=== PATIENT | female | born 1990 | race Caucasian/White ===

== ENCOUNTER 2016-08-24 10:26 | Emergency (ER) | payer OTHER ==
[2016-08-24 10:36] VITALS: TEMP 98.3; O2SAT 99
[2016-08-24 11:56] VITALS: BP 115/75; PULSE 61; RESP 20
--- NOTE | 2016-08-24 11:57 | C.PDOC ---
History Of Present Illness 26 y/o female presents to the ED with complaints of headache x3 days. Pain is frontal radiating to back of head, throbbing, 6/10. Pt denies any trauma. She states that when she turns her head to the left, she feels pulling deep in her back. Denies fever, chills, nausea, vomiting, neck pain, vision changes, chest pain, SOB or any other complaints. Time Seen by Provider: 08/24/16 10:43 Chief Complaint (Nursing): Headache History Per: Patient History/Exam Limitations: no limitations Onset/Duration Of Symptoms: Days Current Symptoms Are (Timing): Still Present Severity: Moderate Quality: "Pain" Preceeding Symptoms: None Recent travel outside of the [place]: No Past Medical History Reviewed: Historical Data, Nursing Documentation, Vital Signs Vital Signs: Last Vital Signs Temp 98.3 F 08/24/16 10:34 Pulse 61 08/24/16 11:56 Resp 20 08/24/16 11:56 BP 115/75 08/24/16 11:56 Pulse Ox 99 08/24/16 11:59 Family History: States: Unknown Family Hx - Social History Hx Tobacco Use: No Hx Alcohol Use: No Hx Substance Use: No - Immunization History Hx Tetanus Toxoid Vaccination: No Hx Influenza Vaccination: No Hx Pneumococcal Vaccination: No Review Of Systems Except As Marked, All Systems Reviewed And Found Negative. Constitutional: Negative for: Fever, Chills Eyes: Negative for: Vision Change Cardiovascular: Negative for: Chest Pain Respiratory: Negative for: Shortness of Breath Gastrointestinal: Negative for: Nausea, Vomiting Musculoskeletal: Negative for: Neck Pain Neurological: Positive for: Headache Physical Exam - Physical Exam Appears: Non-toxic, No Acute Distress Skin: Warm, Dry, No Rash Head: Atraumatic, Normacephalic Ear(s): Bilateral: Normal Nose: Normal Oral Mucosa: Moist Throat: Normal, No Erythema Neck: Normal, Normal ROM, No Midline Cervical Tenderness, Supple Chest: Symmetrical Cardiovascular: Rhythm Regular, No Murmur Respiratory: Normal Breath Sounds, No Rales, No Rhonchi, No Wheezing Gastrointestinal/Abdominal: Normal Exam, Soft, No Tenderness Back: No Vertebral Tenderness, Muscle Spasm (middle back) Extremity: Normal ROM Extremity: Bilateral: Atraumatic Neurological/Psych: Oriented x3, Normal Speech, Normal Cognition ED Course And Treatment O2 Sat by Pulse Oximetry: 99 (room air) Pulse Ox Interpretation: Normal Medical Decision Making Medical Decision Making: Patient feeling much better, will d/c home. Disposition Counseled Patient/Family Regarding: Diagnosis, Need For Followup, Rx Given - Disposition Referrals: Darcie Chakraborty [Outside] Disposition: HOME/ ROUTINE Disposition Time: 12:34 Condition: STABLE Additional Instructions: Follow up with your doctor. Take pain medications. Don't work or drive under the influence of Valium. Prescriptions: diaZEpam [Valium] 5 mg PO TID #6 tab Ibuprofen [Motrin] 600 mg PO TID #6 tab Instructions: Muscle Spasm (ED), Tension Headache (ED) Forms: Gen Discharge Inst Panamanian, [facility] (Panamanian) - POA Present On Arrival: None - Clinical Impression Clinical Impression: Headache, Muscle spasm - Scribe Statement The provider has reviewed the documentation as recorded by the Laurita Grady Provider Attestation: All medical record entries made by the Johnibpooja were at my direction and personally dictated by me. I have reviewed the chart and agree that the record accurately reflects my personal performance of the history, physical exam, medical decision making, and the department course for this patient. I have also personally directed, reviewed, and agree with the discharge instructions and disposition.
== END 2016-08-24 12:43 | disposition home or self-care (01) ==
LOC: C.ER 10:26
DX: R51 Headache (principal); M62.838 Other muscle spasm